=== PATIENT | male | born 1975 | race Two or more races ===

== ENCOUNTER → 2023-04-17 | Emergency (ER) | payer OTHER ==
[~2023-04-17] VITALS: Ht 182.9 cm; Wt 77.1 kg
[~2023-04-17] MED LIST: LITHIUM CARBON450 MG PO; XANAX0.25 MG PO
== END | disposition home or self-care (01) ==
LOC: ER 19:08
DX: S01.81XA Laceration without foreign body of other part of head, initial encounter (principal); W10.8XXA Fall (on) (from) other stairs and steps, initial encounter; Y93.89 Activity, other specified; Y92.018 Other place in single-family (private) house as the place of occurrence of the external cause; Y99.9 Unspecified external cause status